=== PATIENT | female | born 1990 | race Caucasian/White ===

== ENCOUNTER 2024-01-30 07:42 | Emergency (ER) | payer OTHER ==
[2024-01-30] MEDS: Sodium Chloride 0.9% 10 ML Syringe FLUSH PRN (08:52)
[2024-01-30] MEDS: Sodium Chloride 0.9% 1,000 ML IV ONE (08:52)
[2024-01-30] MEDS: Ondansetron 4 MG/2 ML SDV IVPUSH ONE (08:52)
[2024-01-30 08:55] LABS: BASOPHILS PERCENT AUTO 0.4 % (0.0-1.0); EOSINOPHILS PERCENT AUTO 3.2 % (1.0-3.0); HEMATOCRIT 39.7 % (37.0-47.0); HEMOGLOBIN 13.3 g/dL (12.0-16.0); LYMPHOCYTES PERCENT AUTO 20.5 % (20.5-50.1); MEAN CORPUSCULAR HEMOGLOBIN 30.1 pg (27.0-34.0); MEAN CORPUSCULAR HGB CONC 33.5 g/dL (33.0-35.0); MEAN CORPUSCULAR VOLUME 89.8 fL (80-100); MONOCYTES PERCENT AUTO 12.1 % (2-8); NEUTROPHILS PERCENT AUTO 63.8 % (42.2-75.2); PLATELET COUNT,PLT 316 10^3/uL (150-450); RED BLOOD CELL COUNT 4.42 10^6/uL (4.2-5.4); WHITE BLOOD CELL COUNT,WBC 7.6 10^3/uL (5.0-10.0)
[2024-01-30 09:13] LABS: A/G RATIO 1.1; ALBUMIN 3.8 g/dL (3.4-5.0); BILIRUBIN TOTAL 5.7 mg/dL (0.2-1.0); BUN/CREATININE RATIO 5.8 (No establ ref range); CALCIUM 9.2 mg/dL (8.5-10.1); CREATININE 0.86 mg/dL (0.55-1.02); EST CRCL DRUG DOSING (CG) 87.1 mL/min; MAGNESIUM 1.8 mg/dL (1.8-2.4); PROTEIN TOTAL,TP 7.2 g/dL (6.4-8.2)
== END 2024-01-30 10:28 | disposition home or self-care (01) ==
LOC: DL.ED 07:42
DX: E86.0 Dehydration (principal); F10.10 Alcohol abuse, uncomplicated; Z86.16 Personal history of COVID-19
CPT/HCPCS: 36415; 80053; 81025; 83735; 85025; 96361; 96374; 99284; J2405; J7030; J3490

== ENCOUNTER 2024-05-11 23:35 | Emergency (ER) | payer OTHER ==
[2024-05-11 23:50] LABS: BASOPHILS PERCENT AUTO 0.2 % (0.0-1.0); EOSINOPHILS PERCENT AUTO 1.1 % (1.0-3.0); HEMATOCRIT 41.1 % (37.0-47.0); LYMPHOCYTES PERCENT AUTO 35.9 % (20.5-50.1); MEAN CORPUSCULAR HEMOGLOBIN 29.9 pg (27.0-34.0); MEAN CORPUSCULAR HGB CONC 34.1 g/dL (33.0-35.0); MEAN CORPUSCULAR VOLUME 87.8 fL (80-100); MONOCYTES PERCENT AUTO 7.3 % (2-8); NEUTROPHILS PERCENT AUTO 55.5 % (42.2-75.2); PLATELET COUNT,PLT 398 10^3/uL (150-450); RED BLOOD CELL COUNT 4.68 10^6/uL (4.2-5.4); WHITE BLOOD CELL COUNT,WBC 12.4 10^3/uL (5.0-10.0)
[2024-05-11 23:59] LABS: APPEARANCE,URINE CLEAR (CLEAR); BILIRUBIN,URINE NEGATIVE (NEGATIVE); COLOR,URINE YELLOW (YELLOW); GLUCOSE,URINE NEGATIVE (NEGATIVE); KETONES,URINE NEGATIVE (NEGATIVE); LEUKOCYTE ESTERASE,URINE NEGATIVE (NEGATIVE); NITRITE,URINE NEGATIVE (NEGATIVE); OCCULT BLOOD,URINE NEGATIVE (NEGATIVE); PROTEIN,URINE 30 (NEGATIVE); UROBILINOGEN,URINE 0.2 mg/dL (0.2-1.0)
[2024-05-12 00:01] LABS: AMPHETAMINES,URINE NEGATIVE (NEGATIVE); BARBITURATES,URINE NEGATIVE (NEGATIVE); BENZODIAZEPINE,URINE NEGATIVE (NEGATIVE); MDMA (ECSTASY), URINE NEGATIVE (NEGATIVE); METHADONE,URINE NEGATIVE (NEGATIVE); METHAMPHETAMINES,URINE NEGATIVE (NEGATIVE); OPIATES,URINE NEGATIVE (NEGATIVE); OXYCODONE,URINE NEGATIVE (NEGATIVE); PHENCYCLIDINE,URINE NEGATIVE (NEGATIVE); TCA,URINE NEGATIVE (NEGATIVE)
[2024-05-12 00:17] LABS: BACTERIA,URINE FEW /HPF (0-FEW/HPF); EPITHELIAL CELLS,URINE MANY /HPF (NOT SEEN); MUCUS,URINE FEW /LPF (NOT SEEN); RBC,URINE 0-5 /HPF (0-5); WBC,URINE 0-5 /HPF (0-5/HPF)
[2024-05-12 00:19] LABS: A/G RATIO 1.1; ALBUMIN 3.7 g/dL (3.4-5.0); ANION GAP 14.6 mEq/L (7-13); BILIRUBIN TOTAL 0.1 mg/dL (0.2-1.0); BUN/CREATININE RATIO 12.4 (No establ ref range); CALCIUM 9.1 mg/dL (8.5-10.1); CREATININE 0.89 mg/dL (0.55-1.02); EST CRCL DRUG DOSING (CG) 84.17 mL/min; MAGNESIUM 1.9 mg/dL (1.8-2.4); POTASSIUM,K 3.6 mmol/L (3.5-5.1); TSH ULTRASENSITIVE 2.23 uIU/mL (0.36-3.74)
[2024-05-12] MEDS: Sodium Chloride 0.9% 1,000 ML IV ONE (00:51)
== END 2024-05-12 02:43 ==
LOC: DL.ED 23:35
DX: I47.10 Supraventricular tachycardia, unspecified (principal); E86.0 Dehydration; Z86.16 Personal history of COVID-19; Z79.899 Other long term (current) drug therapy
CPT/HCPCS: 36415; 80053; 80305; 81001; 82947; 83735; 84443; 84484; 84702; 85025; 93005; 96360; 99285; J7030; 81003

== ENCOUNTER 2024-12-21 00:15 | Observation (INO) | payer OTHER ==
[~2024-12-21 00:15] MED LIST: Carboprost Tromethamine 250 MCG/1 ML Amp IM PRN; Lactated Ringers 1,000 ML IV ONE; Ondansetron 4 MG/2 ML SDV IVPUSH PRN; Oxytocin/Lactated Ringers 30 UNIT/500 ML BAG IV SCH
[2024-12-21 00:40] LABS: PLATELET COUNT,PLT 339.0 10^3/uL (150-450); RED BLOOD CELL COUNT 4.1 10^6/uL (4.2-5.4); WHITE BLOOD CELL COUNT,WBC 11.7 10^3/uL (5.0-10.0)
[2024-12-21 00:55] LABS: CREATININE,URINE RAND 46.09 mg/dL (No establ ref range)
[2024-12-21 00:58] LABS: PROTEIN,URINE RANDOM < 6.0 mg/dL (0.0-11.9)
[2024-12-21 00:59] LABS: ALANINE AMINOTRANSFERASE,ALT 30 U/L (14-59); ASPARTATE AMNIOTRANSFERASE,AST 18 U/L (15-37); BLOOD UREA NITROGEN,BUN 8 mg/dL (7-18); CREATININE 0.77 mg/dL (0.55-1.02)
[2024-12-21 01:00] LABS: ESTIMATED GFR 104 mL/min (>=60)
[2024-12-21] MEDS: Misoprostol 50 MCG (1/2 of 100 MCG) Tab PO SCH (01:35)
[2024-12-21] MEDS: NIFEdipine 30 MG Tab.ER PO SCH (09:22)
[2024-12-21] MEDS: Sodium Chloride 0.9% 10 ML Syringe FLUSH PRN (09:24)
[2024-12-22] MEDS: Lactated Ringers 1,000 ML IV SCH (06:25)
[2024-12-22] MEDS: Oxytocin/Normal Saline 30 UNIT/500 ML BAG IV SCH (06:36)
== END 2024-12-22 16:55 | disposition home or self-care (01) ==
LOC: DL.OB 00:15
PROVIDERS: ADMIT Family Medicine; ATTEND Family Medicine
DX: O16.3 Unspecified maternal hypertension, third trimester (principal); O99.210 Obesity complicating pregnancy, unspecified trimester; E66.813 Obesity, class 3; O99.013 Anemia complicating pregnancy, third trimester; F41.1 Generalized anxiety disorder; K21.9 Gastro-esophageal reflux disease without esophagitis; Z68.37 Body mass index [BMI] 37.0-37.9, adult; Z79.899 Other long term (current) drug therapy
CPT/HCPCS: 36415; 82565; 82570; 84156; 84450; 84460; 84520; 84550; 85027; 86850; 86900; 86901; 96361; 96365; 96367; A9270; G0378; J2590; J7120; Q0163

== ENCOUNTER 2024-12-29 18:25 | Inpatient (IN) | payer OTHER ==
[2024-12-29] MEDS ORDERED: Carboprost Tromethamine 250 MCG/1 ML Amp IM PRN (19:24)
[2024-12-29] MEDS ORDERED: Sodium Chloride 0.9% 10 ML Syringe FLUSH PRN (19:24)
[2024-12-29] MEDS ORDERED: fentaNYL 100 MCG/2 ML SDV IVPUSH PRN (19:24)
[2024-12-29] MEDS ORDERED: Misoprostol 50 MCG (1/2 of 100 MCG) Tab VAG SCH (19:30)
[2024-12-29] MEDS ORDERED: Oxytocin/Lactated Ringers 30 UNIT/500 ML BAG IV SCH (19:30)
[2024-12-29 19:40] LABS: PLATELET COUNT,PLT 306.0 10^3/uL (150-450); RED BLOOD CELL COUNT 4.3 10^6/uL (4.2-5.4); WHITE BLOOD CELL COUNT,WBC 11.7 10^3/uL (5.0-10.0)
[2024-12-29 20:19] LABS: ALANINE AMINOTRANSFERASE,ALT 27.0 U/L (14-59); ASPARTATE AMNIOTRANSFERASE,AST 17.0 U/L (15-37); BILIRUBIN TOTAL 0.2 mg/dL (0.2-1.0); BLOOD UREA NITROGEN,BUN 9.0 mg/dL (7-18); CARBON DIOXIDE,CO2 22.0 mmol/L (21-32); CHLORIDE,CL 100.0 mmol/L (98-107); CREATININE 0.71 mg/dL (0.55-1.02); EST CRCL DRUG DOSING (CG) 104.52 mL/min; GLUCOSE RANDOM 80.0 mg/dL (70-99); LACTATE DEHYDROGENASE,LDH 133.0 U/L (81-234); POTASSIUM,K 3.9 mmol/L (3.5-5.1); PROTEIN TOTAL,TP 6.4 g/dL (6.4-8.2); SODIUM,NA 131.0 mmol/L (136-145)
[2024-12-29 20:22] LABS: A/G RATIO 0.6; ESTIMATED GFR 114.0 mL/min (>=60)
[2024-12-29 20:30] LABS: CREATININE,URINE RAND 43.26 mg/dL (No establ ref range)
[2024-12-29 20:31] LABS: PROTEIN,URINE RANDOM < 6.0 mg/dL (0.0-11.9)
[2024-12-29] MEDS: NIFEdipine 30 MG Tab.ER PO SCH (21:56)
[2024-12-29] MEDS: Sodium Chloride 0.9% 10 ML Syringe FLUSH SCH (21:56)
[2024-12-29] MEDS: Misoprostol 50 MCG (1/2 of 100 MCG) Tab PO SCH (21:58)
[2024-12-30] MEDS: Lactated Ringers 1,000 ML IV ONE (23:29)
[2024-12-30] MEDS: Oxytocin/Normal Saline 30 UNIT/500 ML BAG IV SCH (23:36)
[2024-12-31] MEDS ORDERED: fentaNYL 100 MCG/2 ML SDV EPIDUR ONE (16:00)
[2024-12-31] MEDS ORDERED: fentaNYL 100 MCG/2 ML SDV ONE (16:00)
[2024-12-31] MEDS ORDERED: ePHEDrine 50 MG/ML SDV ONE (16:00)
[2024-12-31] MEDS: Lactated Ringers 1,000 ML IV SCH (16:04)
[2024-12-31] MEDS: Ondansetron 4 MG/2 ML SDV IVPUSH PRN (16:48)
[2024-12-31] MEDS: ePHEDrine 50 MG/ML SDV IVPUSH PRN (17:12)
[2024-12-31] MEDS ORDERED: Ondansetron 4 MG/2 ML SDV ONE (19:41)
[2024-12-31] MEDS ORDERED: Dexamethasone 4 MG/ML SDV ONE (19:41)
[2024-12-31] MEDS ORDERED: Ketorolac 30 MG/ML SDV ONE (19:42)
[2024-12-31] MEDS ORDERED: Carboprost Tromethamine 250 MCG/1 ML Amp IM PRN (20:02)
[2024-12-31] MEDS ORDERED: diphenhydrAMINE 50 MG/ML SDV IVPUSH PRN (20:02)
[2024-12-31] MEDS ORDERED: Ondansetron 4 MG/2 ML SDV IVPUSH PRN (20:02)
[2024-12-31] MEDS ORDERED: Lactated Ringers 1,000 ML IV SCH (20:15)
[2024-12-31] MEDS: ePHEDrine 50 MG/ML SDV ONE (20:28)
[2024-12-31 20:57] LABS: PLATELET COUNT,PLT 295.0 10^3/uL (150-450); RED BLOOD CELL COUNT 4.17 10^6/uL (4.2-5.4); WHITE BLOOD CELL COUNT,WBC 19.5 10^3/uL (5.0-10.0)
[2024-12-31] MEDS: Acetaminophen/oxyCODONE 325-5 MG Tab PO PRN (23:46)
[2025-01-01] MEDS: Ketorolac 30 MG/ML SDV IVPUSH SCH (04:20)
[2025-01-01] MEDS: Prenatal Multivitamin with Calcium/Folic Acid/Iron Tab PO SCH (08:07)
[2025-01-01] MEDS: Ketorolac 30 MG/ML SDV ONE (16:33)
[2025-01-02] MEDS: Acetaminophen/oxyCODONE 325-5 MG Tab PO PRN (00:30)
[2025-01-02 08:05] LABS: PLATELET COUNT,PLT 281.0 10^3/uL (150-450); RED BLOOD CELL COUNT 3.46 10^6/uL (4.2-5.4); WHITE BLOOD CELL COUNT,WBC 10.4 10^3/uL (5.0-10.0)
[2025-01-02] MEDS: Measles, Mumps & Rubella Vaccine 0.5 ML SDV SUBCUT ONE (08:21)
[2025-01-02] MEDS ORDERED: Ropivacaine 100 ML EPIDUR ONE (11:36)
[2025-01-02] MEDS ORDERED: Ketorolac 30 MG/ML SDV IVPUSH ONE (11:36)
[2025-01-02] MEDS ORDERED: Oxytocin/Normal Saline 30 UNIT/500 ML BAG IV ONE (11:36)
[2025-01-02] MEDS ORDERED: Sodium Chloride 0.9% 10 ML Syringe IV ONE (11:36)
[2025-01-02] MEDS ORDERED: fentaNYL 100 MCG/2 ML SDV EPIDUR ONE (11:36)
[2025-01-02] MEDS ORDERED: Dexamethasone 4 MG/ML SDV IV ONE (11:36)
[2025-01-02] MEDS ORDERED: Carboprost Tromethamine 250 MCG/1 ML Amp IM ONE (11:36)
[2025-01-02] MEDS ORDERED: Ondansetron 4 MG/2 ML SDV IV ONE (11:36)
[2025-01-02] MEDS ORDERED: ePHEDrine 50 MG/ML SDV IV ONE ×2 (11:36)
== END 2025-01-02 11:37 | disposition home or self-care (01) | DRG 787 ==
LOC: DL.OBCHECK 18:25 → DL.OB 18:40 → OBSVTOIN 12-31 18:40
PROVIDERS: ADMIT Family Medicine; ATTEND Family Medicine
PROC: 3E0R3BZ Introduction of Anesthetic Agent into Spinal Canal, Percutaneous Approach (ICD-10-PCS; principal; 2024-12-31 18:30)
PROC: 10D00Z1 Extraction of Products of Conception, Low, Open Approach (ICD-10-PCS; principal; 2024-12-31 18:30)
DX: O10.92 Unspecified pre-existing hypertension complicating childbirth (principal); E46 Unspecified protein-calorie malnutrition; O25.2 Malnutrition in childbirth; O99.214 Obesity complicating childbirth; O99.02 Anemia complicating childbirth; Z3A.38 38 weeks gestation of pregnancy; Z37.0 Single live birth; Z90.49 Acquired absence of other specified parts of digestive tract; Z98.890 Other specified postprocedural states; Z79.899 Other long term (current) drug therapy
CPT/HCPCS: 36415; 51702; 80053; 82570; 83615; 84156; 85027; 90471; 90707; 94010; A9270-GY; J1100; J1885; J2003; J2405; J2590; J2795; J3010; J3490; J7120